=== PATIENT | male | born 1960 | race Caucasian/White ===

== ENCOUNTER 2016-10-06 15:06 | Emergency (ER) | payer OTHER | END 2016-10-06 16:35 | disposition home or self-care (01) | LOC: ER 15:06 | PROC: 0RSKXZZ Reposition Left Shoulder Joint, External Approach (ICD-10-PCS; principal; 2016-10-06) | DX: S42.252A Displaced fracture of greater tuberosity of left humerus, initial encounter for closed fracture (principal); S43.015A Anterior dislocation of left humerus, initial encounter; S43.035A Inferior dislocation of left humerus, initial encounter; F17.200 Nicotine dependence, unspecified, uncomplicated; I10 Essential (primary) hypertension; Z91.14 Patient's other noncompliance with medication regimen; W19.XXXA Unspecified fall, initial encounter | CPT/HCPCS: 73030-LT; 93005; 96374; 96375; 96376; 99283; A9270-GY ==